=== PATIENT | male | born 1970 | race Caucasian/White ===

== ENCOUNTER 2020-01-24 15:40 | Emergency (ER) | payer BC ==
[~2020-01-24] VITALS: Ht 177.8 cm; Wt 145.1 kg
[2020-01-24 18:13] LABS: POTASSIUM SERUM 3.9 mmol/L (3.5-5.1)
[2020-01-24 18:14] LABS: ALBUMIN 3.2 g/dL (3.4-5.0); BILIRUBIN TOTAL 0.4 mg/dL (0.20-1.00); CALCIUM 9.5 mg/dL (8.5-10.1); CARBON DIOXIDE 27.2 mmol/L (21-32); CHOLESTEROL/HDL RATIO 4.8; CREATININE SERUM 2.5 mg/dL (0.7-1.3); TOTAL PROTEIN, SERUM 8.1 g/dL (6.4-8.2)
[2020-01-24 18:51] LABS: microscopic required? NO
[2020-01-24 19:51] VITALS: BP 184/98
== END 2020-01-24 19:51 | disposition home or self-care (01) ==
LOC: ED 15:40
PROVIDERS: Specialist
DX: I10 Essential (primary) hypertension (principal); E66.01 Morbid (severe) obesity due to excess calories
CPT/HCPCS: 83880; Q0092